=== PATIENT | female | born 2000 | race Caucasian/White ===

== ENCOUNTER → 2023-05-06 17:21 | Outpatient (REF) | payer OTHER, SELFPAY | LOC: RAD 17:21 | PROVIDERS: ATTENDING PHYSICIAN Physician Assistant | DX: R10.2 Pelvic and perineal pain (principal); N92.0 Excessive and frequent menstruation with regular cycle | CPT/HCPCS: 76856 ==

== ENCOUNTER 2023-07-16 10:51 | Emergency (ER) | payer OTHER, SELFPAY ==
[2023-07-16 10:59] VITALS: BP 110/65
[2023-07-16 11:04] VITALS: BMI 25.9
--- NOTE | 2023-07-16 11:07 | ED.GENMED ---
History of Present Illness
<Vanessa Moctezuma, MERCHANDISE PRESENTATION ASSOCIATE - Last Filed: 07/17/23 21:48>
General
Chief Complaint: Abdominal Pain
Source: patient
Exam Limitations: none
Time Seen by Provider: 07/16/23 11:06
Nursing documentation reviewed up to this point in time: agreed with
Travel History
Have you had any contact with someone who has COVID-19?: No
Do you have any symptoms of coronavirus? Fever > 100 degrees, chills, cough, shortness of breath, sore throat, loss of taste or smell, muscle aches, or headache?: No
History of Present Illness
History of Present Illness:
23-year-old female with no past medical history states she awakened at 630 this a.m. with right lower quadrant abdominal pain. She is also not nauseous and vomiting. She went to urgent care and was sent here for evaluation. She states the pain is
now 7/10, right lower quadrant, some mild pain in the right flank area.
Past History
<Vanessa Moctezuma, MERCHANDISE PRESENTATION ASSOCIATE - Last Filed: 07/17/23 21:48>
Past History
ED Past Medical History: None
ED Past Surgical History: None
Social History
Tobacco: Non-smoker
Alcohol: Occasional
Personal: Single
Living: with family
Review of Systems
<Vanessa Moctezuma, MERCHANDISE PRESENTATION ASSOCIATE - Last Filed: 07/17/23 21:48>
Review of Systems
Allergies reviewed?: Yes
All Other Systems: ROS reviewed and negative except as documented in HPI and ROS
Constitutional: Denies fever
Respiratory: Denies trouble breathing
Cardiac: Denies chest pain
ABD/GI: Reports abdominal pain, nausea and vomiting; Denies diarrhea or constipated
: Reports flank pain (Mild right flank discomfort); Denies dysuria, frequency, difficulty voiding or dark urine
Musculoskeletal: Reports no symptoms
Skin: Reports no symptoms
Neurological: Reports no symptoms
Phy Exam
<Vanessa Moctezuma, MERCHANDISE PRESENTATION ASSOCIATE - Last Filed: 07/17/23 21:48>
Physical Exam
Physical Exam:
GENERAL: No acute distress. A&Ox3.
CONSTITUTIONAL: Afebrile.
EYES: Clear, conjunctivae normal
ENMT: moist mucus membranes, Pharynx nl
RESPIRATORY: Regular respirations, nonlabored, lungs clear.
CARDIOVASCULAR: Regular rate and rhythm, no murmurs, no rubs.
GI: Soft, tender to palpate right lower quadrant, mild right flank tenderness to percussion, hypoactive BS.
MUSCULOSKELETAL: Moves with ease. Well perfused.
SKIN: Warm, dry, pink
PSYCH: Normal mood and affect. Well kept, interactive and appropriate
NEUROLOGIC: Awake, alert and oriented. No focal neurological deficits
Course
<Vanessa Moctezuma, MERCHANDISE PRESENTATION ASSOCIATE - Last Filed: 07/17/23 21:48>
Orders/Labs/Results
Orders:
Orders
07/16/23 11:12
US Pelvis Only (non-obstetric) Urgent
Comment:
Reason For Exam: RLQ pain
07/16/23 11:13
0.9% Sodium Chloride 1000 ml [Nss] 1,000 ml IV BOLUS
Morphine Sulfate 4 mg IV NOW STA
US Abdomen - Appendix Only Urgent
Comment:
Reason For Exam: RLQ pain
07/16/23 11:14
Ondansetron Injectable [Zofran] 4 mg IV NOW STA
07/16/23 11:21
Complete Blood Count/With Diff Urgent
Comprehensive Metabolic Panel Urgent
HCG, Serum Qualitative Screen Urgent
Lipase Urgent
Test Result ONCE
07/16/23 15:50
Ondansetron Injectable [Zofran] 4 mg .ROUTE .[facility]
07/16/23 15:51
Morphine Sulfate 2 mg .ROUTE .[facility]-MED ONE
07/16/23 15:56
Ondansetron Injectable [Zofran] 4 mg IV NOW STA
07/16/23 15:57
Morphine Sulfate 2 mg IV NOW STA
07/16/23 16:05
Urinalysis Reflex To Culture Urgent
Date Specimen was Collected: 07/16/23
Time Specimen was Collected: 13:49
Urine Microscopic Reflex Cult Urgent
Chlamydia/GC by PCR Urgent
BRYCE Source: U
Specimen Description:
Date Specimen was Collected: 07/16/23
Time Specimen was Collected: 13:49
Comment: ADD ON
Urine Culture Urgent
BRYCE Source: U
Specimen Description:
Date Specimen was Collected: 07/16/23
Time Specimen was Collected: 13:49
07/16/23 17:11
CT Abd/pelvis W Iv Cont Urgent
Comment:
Reason For Exam: right sided abd pain
07/16/23 18:52
Add On- LAB Urgent
Tests Added?: GC/Chlamydia PCR Urine
Abnormal Lab Results
07/16/23 07/16/23
11:21 16:05
RBC 4.03 L 10^6/uL
(4.20-5.40)
Hct 36.8 L %
(37.0-47.0)
MCH 31.5 H pg
(27.0-31.0)
RDW 11.4 L %
(11.5-14.5)
Urine Ketones 2+ A
(Negative)
Leukocyte Esterase Rfl 1+ A
(Negative)
Urine Bacteria (Reflex) Moderate A
(Negative)
07/16/23 11:21
07/16/23 11:21
Vital Signs
Initial and Last Documented VS:
Initial Vital Signs
Temp Pulse Resp BP Pulse Ox
98.2 F 75 16 110/65 97
07/16/23 10:59 07/16/23 10:59 07/16/23 10:59 07/16/23 10:59 07/16/23 10:59
Last Documented Vital Signs
Temp Pulse Resp BP Pulse Ox
98.2 F 71 19 107/61 100
07/16/23 10:59 07/16/23 18:49 07/16/23 18:49 07/16/23 18:49 07/16/23 18:49
<Chuy Marlow PA-C - Last Filed: 07/16/23 21:17>
Orders/Labs/Results
Orders:
Orders
07/16/23 11:12
US Pelvis Only (non-obstetric) Urgent
Comment:
Reason For Exam: RLQ pain
07/16/23 11:13
0.9% Sodium Chloride 1000 ml [Nss] 1,000 ml IV BOLUS
Morphine Sulfate 4 mg IV NOW STA
US Abdomen - Appendix Only Urgent
Comment:
Reason For Exam: RLQ pain
07/16/23 11:14
Ondansetron Injectable [Zofran] 4 mg IV NOW STA
07/16/23 11:21
Complete Blood Count/With Diff Urgent
Comprehensive Metabolic Panel Urgent
HCG, Serum Qualitative Screen Urgent
Lipase Urgent
Test Result ONCE
07/16/23 15:50
Ondansetron Injectable [Zofran] 4 mg .ROUTE .[facility]-MED ONE
07/16/23 15:51
Morphine Sulfate 2 mg .ROUTE .[facility]-MED ONE
07/16/23 15:56
Ondansetron Injectable [Zofran] 4 mg IV NOW STA
07/16/23 15:57
Morphine Sulfate 2 mg IV NOW STA
07/16/23 16:05
Urinalysis Reflex To Culture Urgent
Date Specimen was Collected: 06/08/24
Time Specimen was Collected: 13:49
Urine Microscopic Reflex Cult Urgent
Chlamydia/GC by PCR Urgent
BRYCE Source: U
Specimen Description:
Date Specimen was Collected: 07/16/23
Time Specimen was Collected: 13:49
Comment: ADD ON
Urine Culture Urgent
BRYCE Source: U
Specimen Description:
Date Specimen was Collected: 07/16/23
Time Specimen was Collected: 13:49
07/16/23 17:11
CT Abd/pelvis W Iv Cont Urgent
Comment:
Reason For Exam: right sided abd pain
07/16/23 18:52
Add On- LAB Urgent
Tests Added?: GC/Chlamydia PCR Urine
Abnormal Lab Results
07/16/23 07/16/23
11:21 16:05
RBC 4.03 L 10^6/uL
(4.20-5.40)
Hct 36.8 L %
(37.0-47.0)
MCH 31.5 H pg
(27.0-31.0)
RDW 11.4 L %
(11.5-14.5)
Urine Ketones 2+ A
(Negative)
Leukocyte Esterase Rfl 1+ A
(Negative)
Urine Bacteria (Reflex) Moderate A
(Negative)
07/16/23 11:21
07/16/23 11:21
Vital Signs
Initial and Last Documented VS:
Initial Vital Signs
Temp Pulse Resp BP Pulse Ox
98.2 F 75 16 110/65 97
07/16/23 10:59 07/16/23 10:59 07/16/23 10:59 07/16/23 10:59 07/16/23 10:59
Last Documented Vital Signs
Temp Pulse Resp BP Pulse Ox
98.2 F 71 19 107/61 100
07/16/23 10:59 07/16/23 18:49 07/16/23 18:49 07/16/23 18:49 07/16/23 18:49
<Vanessa Moctezuma NP - Last Filed: 07/17/23 21:48>
MDM/Problems Addressed
Differential Diagnosis Includes:
Appendicitis, ovarian rupture, ovarian torsion, kidney stone
MDM/Problems Addressed:
23-year-old female with no past medical history states she awakened at 630 this a.m. with right lower quadrant abdominal pain. She is also not nauseous and vomiting. She went to urgent care and was sent here for evaluation. She states the pain is
now 7/10, right lower quadrant, some mild pain in the right flank area.
She had 1 bite of a granola bar this morning other than that her last p.o. intake was 12 hours ago.
Afebrile
12:00 PM
CBC normal
CMP normal
hCG negative
3:50 PM
Patient returned from ultrasound states pain is coming back, now 410, pain medication ordered
Awaiting results for:
Appendix ultrasound radiology report
Pelvic ultrasound radiology report
Case discussed with Osvaldo AWAD who will assume care from this point.
<Chuy Marlow PA-C - Last Filed: 07/16/23 21:17>
*Radiology
Radiology exam reviewed: radiology read reviewed
*Critical Care Note
Total Time (30-74mins, 75-104mins- exclusive of procedures): Not Applicable
<Chuy Marlow PA-C - Last Filed: 07/16/23 21:17>
Patient Management
Discussion with other providers: Card Filer
Escalation/DeEscalation of care consider admission/obs:
Patient received in signout pending ultrasound results. Ultrasounds ultimately showed some mild fluid within the right adnexa which could certainly be the cause of the pain however CT scan of the abdomen pelvis was ordered to rule out any
appendicitis. CT scan showed area of fluid around the right adnexa with concern for possible hydrosalpinx or pyosalpinx/abscess. Torsed ovary was also considered however less likely given on the ultrasound there was flow to the ovaries. DIVISION PLANT ENGINEER was
notified and came to the emergency department to evaluate the patient. Patient noted no history of sexual intercourse but for thoroughness we did send a GC/chlamydia. DIVISION PLANT ENGINEER feels comfortable treating with oral antibiotics. Patient already has a
follow-up visit/ultrasound scheduled for 10 days from now. patient was also given information for urologist due to the hydronephrosis which could also be the potential cause for her symptoms today. All questions were answered. Patient is
otherwise stable for discharge home.
ED Attending Note
<Vanessa Moctezuma NP - Last Filed: 07/17/23 21:48>
-
Portions of this chart may have been created with voice recognition software.� Occasional wrong word or��sound alike� substitutions may have occurred due to the inherent limitations of voice recognition software.
Discharge Plan
Departure
Patient Disposition: Home (Routine Discharge)
Date of Disposition: 07/16/23
Time of Disposition: 19:52
Patient with high blood pressure during this ER visit?: No
Discharge Problem:
Right sided abdominal pain
Instructions: Abdominal Pain
Prescriptions:
No Action
No Current Medications
0
Referrals:
Leif Russell MD [Active] - Next open appointment
Harshad Nieto MD [Active] - (Urology)
Bridget Serrano PA [Family Provider] -
Interventions
Interventions:
*Risk Screen - Suicide Last Done: 07/16/23 11:04
*General Assessment Last Done: 07/16/23 10:59
*Neglect/Abuse Screening Last Done: 07/16/23 11:04
ED- Fall Risk Assessment Last Done: 07/16/23 20:00
*ED COVID-19 Vaccine History Last Done: 07/16/23 10:59
*Nursing Disposition Last Done: 07/16/23 20:00
SB-Lszfze-Tbutjderkc Assessment Last Done: 07/16/23 11:04
Discharge Date and Time
Discharge Date/Time: 07/16/23 20:01
Print Language: SYRIAC
[2023-07-16] MEDS: NSS 1000 IV (11:21)
[2023-07-16 11:29] LABS: % Basophils 0.6 % (0-2); % Eosinophils 0.7 % (0-6); % Immature Granulocytes 0.2 % (0-0.5); % Lymphocytes 22.1 % (20.5-51.1); % Monocytes 6.4 % (1.7-9.3); Absolute Basophils 0.1 10^3/uL (0-0.2); Absolute Eosinophils 0.1 10^3/uL (0-0.7); Absolute Lymphocytes 1.9 10^3/uL (1.2-3.4); Absolute Monocytes 0.6 10^3/uL (0.1-0.6); Hematocrit 36.8 % (37.0-47.0); Hemoglobin 12.7 g/dL (12.0-16.0); Mean Corp Hgb Conc. 34.5 g/dL (33.0-37.0); Mean Corpuscular Hgb 31.5 pg (27.0-31.0); Mean Corpuscular Volume 91.3 fL (81.0-99.0); Mean Platelet Volume 10.2 fL (7.4-10.4); Nucleated Red Blood Cells % 0 %; Platelet Count 283 10^3/uL (130-400); Red Blood Cell Count 4.03 10^6/uL (4.20-5.40); Red Cell Dist. Width 11.4 % (11.5-14.5); White Blood Cell Count 8.6 10^3/uL (4.8-10.8)
[2023-07-16] MEDS: MORPHINE SULFATE 4 MG IV (11:29)
[2023-07-16] MEDS: ZOFRAN 4 MG IV ×2 (11:29→15:57)
[2023-07-16 11:39] LABS: ALT (SGPT) 17 U/L (0-35); AST (SGOT) 30 U/L (14-36); Alkaline Phosphatase 62 U/L (38-126); Blood Urea Nitrogen 16 mg/dl (7-17); Calcium 9.4 mg/dl (8.4-10.2); Carbon Dioxide 24 mmol/L (22-30); Chloride 107 mmol/L (98-107); Estimated Creatinine Clearance > 125 ml/min; Glucose 93 mg/dl (70-99); Lipase 27 U/L (23-300); Potassium 4.4 mmol/L (3.5-5.1); Sodium 142 mmol/L (135-145); Total Bilirubin 0.4 mg/dl (0.2-1.3); Total Protein 7.7 g/dl (6.3-8.2); eGFR > 60.00
[2023-07-16 12:30] LABS: HCG, Serum Qualitative Screen Negative
[2023-07-16 14:35] VITALS: BP 96/55
[2023-07-16] MEDS: MORPHINE SULFATE 2 MG IV (15:57)
[2023-07-16 16:17] LABS: Urine Albumin Negative (Neg - Trace); Urine Bilirubin Negative (Negative); Urine Character Clear (Clear); Urine Color Yellow; Urine Glucose Negative (Negative); Urine Ketone 2+ (Negative); Urine Leukocyte 1+ (Negative); Urine Nitrite Negative (Negative); Urine Occult Blood Negative (Negative); Urine Urobilinogen Negative (Neg - 1+)
[2023-07-16 16:38] LABS: Urine Squamous Cell >30 /LPF (Few)
[2023-07-16 16:39] LABS: Urine Bacteria Moderate (Negative); Urine Red Blood Cell 0-2 /HPF (0-2)
[2023-07-16 18:49] VITALS: BP 107/61
--- NOTE | 2023-07-16 20:10 | CON.MD ---
Consultation - Medical
-
Full consult dictated
Assessment: Right lower quadrant pain and finding of right hydrosalpinx, less likely pyosalpinx (given patient's lack of sexual activity, lack of fever and normal white count).
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
Pain resolved
Recommendation: Will begin Doxycycline 100 mg bid pending culture results. Patient to keep ultrasound appointment already scheduled for 07/25/23 and patient to see me within 1-2 weeks of the ultrasound. Patient to follow up with Urology, recommend Dr
Hayden or Dr Wood. Nothing per vagina until follow up. Script for Motrin 600 mg po q 6 hours as needed for pain/cramps.
Time spent in evaluating and examining patient as well as personally reviewing labs and imaging studies with radiologist was one hour
== END 2023-07-16 20:01 | disposition home or self-care (01) ==
LOC: EMR 10:51
PROVIDERS: Registered Nurse; EMERGENCY PHYSICIAN Emergency Medicine; FAMILY PHYSICIAN Physician Assistant; OTHER PHYSICIAN Obstetrics & Gynecology
DX: R10.31 Right lower quadrant pain (principal); R11.0 Nausea; N83.202 Unspecified ovarian cyst, left side; N13.1 Hydronephrosis with ureteral stricture, not elsewhere classified
CPT/HCPCS: 99285; 96375; 96361; 96374; 96376 ×2; 74177; 76705; 76856; 80053; 81003; 81015; 83690; 84703; 85025; 87086; 87491; 87591; Q9967

== ENCOUNTER → 2023-07-25 11:27 | Outpatient (REF) | payer OTHER, SELFPAY | LOC: RAD 11:27 | PROVIDERS: ATTENDING PHYSICIAN Nurse Practitioner Family; FAMILY PHYSICIAN Physician Assistant | DX: N83.202 Unspecified ovarian cyst, left side (principal) | CPT/HCPCS: 76830; 76856 ==

== ENCOUNTER → 2023-08-28 08:40 | Outpatient (REF) | payer OTHER, SELFPAY | LOC: MRI 08:40 | PROVIDERS: ATTENDING PHYSICIAN Obstetrics & Gynecology; FAMILY PHYSICIAN Physician Assistant | DX: N70.11 Chronic salpingitis (principal) | CPT/HCPCS: 72197; A9575 ==

== ENCOUNTER → 2023-09-21 10:24 | Outpatient (REF) | payer OTHER, SELFPAY | LOC: RAD 10:24 | PROVIDERS: ATTENDING PHYSICIAN Urology; FAMILY PHYSICIAN Physician Assistant | DX: N13.5 Crossing vessel and stricture of ureter without hydronephrosis (principal) | CPT/HCPCS: 78708; A9539 ==

== ENCOUNTER 2023-09-22 06:03 | Day surgery (SDC) | payer OTHER, SELFPAY ==
[2023-09-22] VITALS (7 sets, daily range): BP systolic 108–119; BP diastolic 53–80; BMI 26.7
[2023-09-22] MEDS: NORMOSOL-R 1000 IV (06:40)
== END 2023-09-22 09:48 | disposition home or self-care (01) ==
LOC: SDS 06:03
PROVIDERS: ATTENDING PHYSICIAN Urology
DX: N13.1 Hydronephrosis with ureteral stricture, not elsewhere classified (principal); R19.00 Intra-abdominal and pelvic swelling, mass and lump, unspecified site
CPT/HCPCS: 52005; 74420; 76000; C1769

== ENCOUNTER → 2024-01-02 17:31 | Outpatient (REF) | payer OTHER, SELFPAY | LOC: MRI 3T 17:31 | PROVIDERS: ATTENDING PHYSICIAN Obstetrics & Gynecology Gynecologic Oncology; FAMILY PHYSICIAN Physician Assistant | DX: R19.03 Right lower quadrant abdominal swelling, mass and lump (principal); N13.30 Unspecified hydronephrosis; C56.1 Malignant neoplasm of right ovary; D01.7 Carcinoma in situ of other specified digestive organs | CPT/HCPCS: 72197; A9575 ==

== ENCOUNTER 2024-01-20 06:08 | Inpatient (IN) | payer OTHER, SELFPAY ==
[2024-01-02 10:18] VITALS: BMI 24.2
[2024-01-02 10:53] LABS: Hematocrit 39.9 % (37.0-47.0); Hemoglobin 13.1 g/dL (12.0-16.0); Mean Corp Hgb Conc. 32.8 g/dL (33.0-37.0); Mean Corpuscular Hgb 30.3 pg (27.0-31.0); Mean Corpuscular Volume 92.4 fL (81.0-99.0); Mean Platelet Volume 10.4 fL (7.4-10.4); Platelet Count 276 10^3/uL (130-400); Red Blood Cell Count 4.32 10^6/uL (4.20-5.40); Red Cell Dist. Width 11.7 % (11.5-14.5); White Blood Cell Count 9.4 10^3/uL (4.8-10.8)
[2024-01-02 11:00] LABS: PT 13.5 Sec (11.4-14.6)
[2024-01-02 11:01] LABS: APTT 34.7 Sec (23.4-35.0)
[2024-01-02 11:16] LABS: ALT (SGPT) 14 U/L (0-35); AST (SGOT) 18 U/L (14-36); Albumin 4.9 g/dl (3.5-5.0); Alkaline Phosphatase 47 U/L (38-126); Blood Urea Nitrogen 14 mg/dl (7-17); Calcium 9.4 mg/dl (8.4-10.2); Carbon Dioxide 23 mmol/L (22-30); Chloride 103 mmol/L (98-107); Estimated Creatinine Clearance > 125 ml/min; Glucose 92 mg/dl (70-99); Potassium 4.1 mmol/L (3.5-5.1); Sodium 141 mmol/L (135-145); Total Bilirubin 0.4 mg/dl (0.2-1.3); Total Protein 7.6 g/dl (6.3-8.2); eGFR > 60.00
[2024-01-02 12:28] LABS: Glycohemoglobin (HgbA1c) 5.5 % (4.0-5.6)
[2024-01-20] VITALS (11 sets, daily range): BP systolic 90–119; BP diastolic 49–77; BMI 24.2
[2024-01-20] MEDS: ENTEREG 12 MG PO (06:47)
[2024-01-20] MEDS: TYLENOL 1000 MG PO (06:47)
[2024-01-20] MEDS: HEPARIN 5000 UNITS SC (06:48)
[2024-01-20] MEDS: NORMOSOL-R/PLASMALYTE-A 1000 IV ×2 (06:48→15:41)
[2024-01-20] MEDS: TRANSDERM-SCOP 1 PATCH TRANSDERM (07:02)
--- NOTE | 2024-01-20 12:34 | W.IMMPOSTOP ---
Surgical Immed Post Op Note
-
Primary Surgeon: Ozfer
Assisting Surgeon: -
Pre-op Diagnosis: R UPJ obstruction
Post-op Diagnosis: same
Procedure Performed: Robotic dismembered R pyeloplasty
Anesthesia Type: general
Specimen / Cultures: none
Estimated Blood Loss: 10cc
Complications: none
Operative Findings:
6Fr x 26cm R JJ stent
Followed by resection of presacral mass by Dr. Davis
--- NOTE | 2024-01-20 14:01 | W.IMMPOSTOP ---
Surgical Immed Post Op Note
-
Primary Surgeon: Scott Davis MD
Wringer And Setter: ANJELICA Maloney
Urologist: Harshad Nieto MD
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
Post-op Diagnosis: Same
Procedure Performed: Robotic excision of presacral mass and robotic dismembered rigth pyeloplasty
Anesthesia Type: GET
Specimen / Cultures: Presacral mass
Estimated Blood Loss: 80cc
Complications: None
Operative Findings: 6cm lobulated mass in the presacral space off to the right
Patient's mother updated.
[2024-01-20] MEDS: DILAUDID 0.25 MG IV (14:11)
--- NOTE | 2024-01-20 15:21 | PTCARENOTE ---
Patient admitted from [facility] post robotic resection of parasacral tumor and pyeloplasty with stent. The patient rates her pain at a 4 out of 10.All seven incisions are open to air without any drainage.Vital signs are stable.The patient is in her bed
with the call march in reach.
[2024-01-20] MEDS: TYLENOL 650 MG PO ×2 (15:43→19:37)
[2024-01-20] MEDS: TORADOL 15 MG IV (19:37)
[2024-01-21] MEDS: TYLENOL PO (00:10)
[2024-01-21] MEDS: NORMOSOL-R/PLASMALYTE-A 1000 IV (01:40)
[2024-01-21] MEDS: TORADOL 15 MG IV ×3 (02:08→13:01)
[2024-01-21] MEDS: TYLENOL 650 MG PO ×4 (04:20→16:33)
[2024-01-21 07:40] VITALS: BP 98/58
[2024-01-21 07:43] LABS: % Basophils 0.2 % (0-2); % Immature Granulocytes 0.2 % (0-0.5); % Lymphocytes 11.5 % (20.5-51.1); % Neutrophils 75.1 % (42.2-75.2); Absolute Lymphocytes 1.4 10^3/uL (1.2-3.4); Absolute Monocytes 1.6 10^3/uL (0.1-0.6); Absolute Neutrophils 9.1 10^3/uL (1.4-6.5); Hematocrit 31.5 % (37.0-47.0); Hemoglobin 10.4 g/dL (12.0-16.0); Mean Corpuscular Hgb 30.6 pg (27.0-31.0); Mean Corpuscular Volume 92.6 fL (81.0-99.0); Mean Platelet Volume 10.3 fL (7.4-10.4); Nucleated Red Blood Cells % 0 %; Platelet Count 273 10^3/uL (130-400); Red Cell Dist. Width 11.9 % (11.5-14.5); White Blood Cell Count 12.1 10^3/uL (4.8-10.8)
[2024-01-21 08:21] LABS: Blood Urea Nitrogen 9 mg/dl (7-17); Calcium 8.1 mg/dl (8.4-10.2); Carbon Dioxide 22 mmol/L (22-30); Chloride 106 mmol/L (98-107); Estimated Creatinine Clearance > 125 ml/min; Glucose 105 mg/dl (70-99); Potassium 4.6 mmol/L (3.5-5.1); Sodium 138 mmol/L (135-145); eGFR > 60.00
--- NOTE | 2024-01-21 09:06 | W.PN.URO.CBU ---
Today's Communication / Plan
-
Enamorado out
OOB/ambulate
CBC
Likely discharge
Assessment / Plan
-
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
s/p robotic R pyeloplasty and excision of mass
- Enamorado out this AM
- OOB/ambulate
- Advance diet as tolerated per surgery
- Recheck CBC in afternoon due to HGB decrease - dilutional vs some blood loss
- Discharge when stable per surgery
Outpatient follow up in 3-4 weeks for stent removal
Diagnosis
-
Date of Service: January 21, 2024
-
Patient Diagnosis: R UPJ obstruction
Post Op Day: s/p robotic R pyeloplasty
Subjective
-
pain controlled
tolerating some liquids
Objective
-
Vital Signs
Temp Pulse Resp BP Pulse Ox
97.4 F 53 16 98/58 99
01/21/24 07:40 01/21/24 07:40 01/21/24 07:40 01/21/24 07:40 01/21/24 07:40
Intake and Output
01/20/24 01/21/24 01/22/24
06:59 06:59 06:59
Intake Total 1680 / 1680
Output Total 1050 / 1050
Balance 630 / 630
Intake:
Oral fluids 480 / 480
IV fluids (Total) 1200 / 1200
Output:
Urine, Enamorado 1050 / 1050
Laboratory Results
01/21/24 05:49
Physical Exam
-
General - well developed, well nourished, no acute distress
Chest - clear
Abdomen - soft, non-tender
Enamorado in place clear urine
Incision - clean, dry
Dressing - clean, dry, intact
[2024-01-21] MEDS: ENTEREG 12 MG PO (09:10)
[2024-01-21 13:09] LABS: Hematocrit 31.8 % (37.0-47.0); Hemoglobin 10.3 g/dL (12.0-16.0); Mean Corp Hgb Conc. 32.4 g/dL (33.0-37.0); Mean Corpuscular Hgb 29.9 pg (27.0-31.0); Mean Corpuscular Volume 92.4 fL (81.0-99.0); Mean Platelet Volume 9.7 fL (7.4-10.4); Platelet Count 253 10^3/uL (130-400); Red Blood Cell Count 3.44 10^6/uL (4.20-5.40); White Blood Cell Count 10.8 10^3/uL (4.8-10.8)
--- NOTE | 2024-01-21 13:55 | W.PN.CRS1 ---
Addendum entered and electronically signed by Calvin Arguello MD 01/22/24 00:35:
I saw and examined the patient the morning of 01/21/24.
The SPECIAL EFFECTS MAKEUP ARTIST's note was reviewed and I agree with the note.
Updated in the afternoon; patient tolerating diet, pain controlled, voiding; okayed for discharge
Original Note:
Today's Communication / Plan
-
Advance diet
Void trial
Assessment/Plan
-
23 yo female with h/o presacral mass and right upj obstruction who is POD #1 Robotic excision of presacral mass and robotic dismembered right pyeloplasty
AFVSS
Labs stable post operatively although acute anemia present secondary to hemodilution and expected operative losses. Stable h/h on repeat
Passing flatus
--Advance to regular diet
--voiding trial today
--Analgesics scheduled and prn
--OOB/ambulate
--SCD's and lovenox for vte ppx
Tentative d/c later today vs tomorrow pending diet tolerance and pain control
Subjective Data
Procedure
01/20/24 Robotic excision of presacral mass and robotic dismembered right pyeloplasty
Subjective Data
Date of Service: January 21, 2024
Patient seen and examined with Dr. Arguello at bedside. Mother present. Denies n/v. some pain with movement. Passing flatus.
Objective Data
-
Vital Signs
Temp Pulse Resp BP Pulse Ox
98.0 F 68 18 98/58 100
01/21/24 12:29 01/21/24 12:29 01/21/24 12:29 01/21/24 07:40 01/21/24 12:29
Intake & Output
01/20/24 01/21/24 01/22/24
06:59 06:59 06:59
Intake Total 1680 / 1680
Output Total 1050 / 1050
Balance 630 / 630
Intake:
Oral fluids 480 / 480
IV fluids (Total) 1200 / 1200
Output:
Urine, Enamorado 1050 / 1050
Lab Results
01/21/24 12:52
01/21/24 05:49
Physical Exam
-
General: No Acute Distress
HEENT: Grossly Normal
Abdomen: Soft, Distended (very minimal) and Tender (mild to incisions)
Skin: Warm and Dry
Incision: Clear, Dry, Intact
--- NOTE | 2024-01-21 14:25 | CM ---
CM met with pt, mother/Tammy and father/Jacob
Pt resides with ehr parents while home from school in a split level home with 2 [place]
6 steps up to bed/bath
Pt indep with ADLs- no DMEs
Denies financial insecurities
PCP- Rita Serrano
Rx- [facility] [address]
Pending dc home later today pending toleration of diet/paim
No dc needs noted
Discharge Disposition- home, no needs anticipated, family transport
[2024-01-21 15:38] VITALS: BP 101/64
--- NOTE | 2024-01-21 15:45 | W.DCSUMMARY ---
Discharge Summary
Discharge Data
Date of Admission: 01/20/24
Date of Discharge: 01/21/24
-
Pending Results: No
Hospital Course
Ms Lee is a 23 yo female with a presacral mass and right upj obstruction who presented for operative management with both urology and colorectal surgery. She underwent a robotic excision of presacral mass and robotic right pyeloplasty with
j-stent placement which proceeded without complication. She was able to have perioperative britton removed prior to discharge and was voiding well. Diet was advanced and well tolerated. Outpatient follow up planned with urology and colorectal surgery
in the coming weeks.
Discharge Plan
-
Patient Disposition: Home (Routine Discharge)
Discharge Diagnosis/Procedures: Right UPJ Obstruction, Presacral mass
Robotic assisted laparoscopic right pyeloplasty, excision of presacral mass
Condition: Good
Diet: No restrictions
Activity: No strenuous activity
Additional Activity: avoid lifting, straining, strenuous exercise for 4 weeks
[address] Restrictions: As prior to admission
Bathing Restrictions: OK to Shower
Wound Care: Gently rinse incisions in the shower, don't scrub or pick off glue.
Activity Restrictions/Additional Instructions:
The urology office will call to schedule follow up with Dr. Nieto for stent removal in 3-4 weeks before you return to school
[facility]: [phone]
Referrals:
Keven Davis MD [Active] - in two to four weeks
Harshad Nieto MD [Active] - in three to four weeks
Mikie-Bridget Zamarripa PA [Family Provider] -
Prescriptions:
New
oxycodone 5 mg tablet
5 mg PO Q4HPRN PRN (Reason: breakthrough/severe pain) Qty: 15 0RF
acetaminophen [acetaminophen] 325 mg tablet
650 mg PO Q4HPRN PRN (Reason: mild pain) Qty: 1 0RF
ibuprofen 200 mg tablet
400 - 600 mg PO Q6HPRN PRN (Reason: moderate pain) Qty: 1 0RF
Continued
norethindrone-e.estradiol-iron [Vanessa Fe 1.5/30 (28)] 1.5 mg-30 mcg (21)/75 mg (7) Tablet
1 tab PO DAILY
Discontinued
metronidazole 500 mg Tablet
500 mg PO .PERPROTOCOL
Patient Comments:
Patient only able to complete 1400 and 1500 doses.
neomycin 500 mg Tablet
500 mg PO .PERPROTOCOL
Patient Comments:
patient only able to complete 1400 and 1500 doses
Sutab 1.479-0.188- 0.225 gram Tablet
0 tab PO PER PKG DIR
Discharge Orders:
Discharge Patient (As Directed); Ordered 01/21/24
Ordered By: Ghislaine Suero
Discharge Date and Time
Print Language: TUNISIAN
[2024-01-21] MEDS: NORMOSOL-R/PLASMALYTE-A IV (16:16)
== END 2024-01-21 16:50 | disposition home or self-care (01) | DRG 661 ==
LOC: 2 SOUTH 06:08
PROVIDERS: Registered Nurse; Urology; ADMITTING PHYSICIAN Surgery; FAMILY PHYSICIAN Physician Assistant
PROC: 0TQ34ZZ Repair Right Kidney Pelvis, Percutaneous Endoscopic Approach (ICD-10-PCS; 2024-01-20)
PROC: 8E0W4CZ Robotic Assisted Procedure of Trunk Region, Percutaneous Endoscopic Approach (ICD-10-PCS; 2024-01-20)
PROC: 0QB13ZZ Excision of Sacrum, Percutaneous Approach (ICD-10-PCS; 2024-01-20)
DX: N13.5 Crossing vessel and stricture of ureter without hydronephrosis (principal); D36.16 Benign neoplasm of peripheral nerves and autonomic nervous system of pelvis
CPT/HCPCS: 88304; 88307; 36415; 80048; 80053; 83036; 85025; 85027; 85610; 85730; 86850; 86900; 86901; 88341; 88342; 93005; A4300; C1769; C2617; J1335

== ENCOUNTER → 2024-09-04 10:27 | Outpatient (REF) | payer OTHER, SELFPAY | LOC: RAD 10:27 | PROVIDERS: ATTENDING PHYSICIAN Urology; FAMILY PHYSICIAN Physician Assistant | DX: N13.5 Crossing vessel and stricture of ureter without hydronephrosis (principal); R19.00 Intra-abdominal and pelvic swelling, mass and lump, unspecified site | CPT/HCPCS: 78707; A9539 ==